=== PATIENT | male | born 1965 | race Caucasian/White ===

== ENCOUNTER → 2021-04-30 10:13 | Outpatient (CLI) | payer BC, SELFPAY ==
--- NOTE | 2021-04-30 11:30 | DI.CT.S_ITS ---
PROCEDURE: CT ABDOMEN PELVIS W CON INDICATIONS: Left lower quadrant pain TECHNIQUE: After the administration of oral and intravenous contrast, axial sections were acquired from the lung bases to the pubic symphysis. Coronal and sagittal reformats were performed. For radiation dose reduction, the following was used: automated exposure control, adjustment of mA and/or kV according to patient size. COMPARISON:None. FINDINGS: Image quality: Excellent. Lung bases: Unremarkable. Heart: No significant findings. ABDOMEN: Liver: Unremarkable. Gallbladder: Unremarkable. Biliary ducts: Unremarkable. Pancreas: Unremarkable. Spleen: Unremarkable. Adrenal Glands: Unremarkable. Kidneys and Ureters: No hydronephrosis. Moderate dilatation of the distal left ureter. Stomach and Bowel: Stomach, small bowel loops, and colon are unremarkable. Normal appendix. Peritoneum: No abnormal intraperitoneal fluid. No free air. Ventral Wall: No hernia. Abdominal Nodes: No retroperitoneal or mesenteric adenopathy by size criteria. Vessels: Aorta and inferior vena cava are normal in size. PELVIS: Pelvic Organs: Unremarkable. Bladder: Unremarkable. Pelvic Nodes: No enlarged lymph nodes. Miscellaneous: No inguinal hernias are seen. Bones: Multilevel disc space narrowing and endplate osteophyte formation, worst at L4-L5, indicating degenerative disc disease. IMPRESSION: 1. No acute process. 2. Distal left ureteral dilatation. Findings may indicate underlying stricture or neoplasm. Ureteroscopy is recommended for further assessment. Dictated by: Jane Parnell M.D. on 04/30/2021 at 14:13 Approved by: Jane Parnell M.D. on 04/30/2021 at 14:14
== END ==
PROVIDERS: PCP Family Medicine; Referring Provider Family Medicine; Visit Provider Family Medicine
DX: R10.32 Left lower quadrant pain (principal)
CPT/HCPCS: 74177

== ENCOUNTER → 2021-05-18 14:30 | Outpatient (CLI) | payer BC, SELFPAY ==
[2021-05-18 16:14] LABS: Prostate Specific Antigen 1.68 ng/mL (0.10-4.00)
== END ==
PROVIDERS: PCP Family Medicine; Referring Provider Specialist; Visit Provider Specialist
DX: R97.20 Elevated prostate specific antigen [PSA] (principal); R33.9 Retention of urine, unspecified; N40.3 Nodular prostate with lower urinary tract symptoms; N13.4 Hydroureter
CPT/HCPCS: 36415; 51701; 81002; 84153

== ENCOUNTER → 2021-06-30 09:03 | Outpatient (CLI) | payer OTHER, SELFPAY ==
[2021-06-30 09:31] LABS: COVID19 -Nasal RAPID Negative (Negative)
== END ==
PROVIDERS: PCP Family Medicine; Visit Provider Specialist
DX: Z20.822 Contact with and (suspected) exposure to COVID-19 (principal)
CPT/HCPCS: 87635; C9803

== ENCOUNTER 2021-07-02 08:03 | Day surgery (SDC) | payer OTHER, SELFPAY ==
[2021-06-29 14:35] VITALS: BMI 28.5
[2021-07-02 08:34] VITALS: BP 157/93; PULSE 91; RESP 20; TEMP 36.6; O2SAT 99; BMI 28.5
[2021-07-02] MEDS: LACTATED RINGERS 1,000 ML 42 ML IV (08:40)
--- NOTE | 2021-07-02 09:51 | PM.PREOP ---
Pre-operative Note COVID-19 Criteria for continued procedure: Expected advancement of disease process, Increased loss of function, Continuing or worsening of significant or severe pain, Deterioration of the patient's condition or overall health, Delay expected to result in less-positive ultimate med/surg outcome and Non-surgical alternatives not available or appropriate per current SOC Interval Note History & Physical reviewed/Exam performed by Physician: Yes Changes to H&P: No
[2021-07-02] MEDS: CEFAZOLIN 2 GM/20 ML SYRINGE IV (10:10)
--- NOTE | 2021-07-02 10:30 | SUR.OPER ---
Lithotomy on padded OR bed, head on pillow, arms secured on padded arm boards at <90 degrees abduction. Legs secured in padded yellow fins stirrups. Patients cell phone placed in patients belongings bag in pre-op area.
[2021-07-02] MEDS: IOPAMIDOL 50 ML VIAL INJ (10:34)
[2021-07-02] MEDS: BELLADONNA/OPIUM SUPPOSITORIES 1 EACH PR (10:46)
[2021-07-02 10:58] VITALS: BP 141/82; PULSE 69; RESP 16; TEMP 36.3; O2SAT 97
--- NOTE | 2021-07-02 11:00 | PM.OP.1 ---
Operative Date/Time/Diagnoses Date of procedure: 07/02/21 Time of procedure: 11:00 Pre-op diagnosis: 1. Left hydroureter 2. Left lower quadrant pain Post-op diagnosis: same Procedure & Clinicians Procedure: 1. Cystoscopy/left retrograde pyelogram Same procedure as scheduled: Yes Indications: 1. Left hydroureter. 2. Left lower quadrant pain. Surgeon: Hermes Curry Click Yes if Unassisted: Yes Anesthesia Type: General Operative Notes Findings: 1. Urethra-normal caliber without annular stricture or lesion. 2. External sphincter-coapted with normal overlying urothelium. 3. Opcadydo-2-6.5 cm length with mild lateral lobe hyperplasia. 4. Left ureter-intraoperative imaging and cine obtained and request made to enter into imaging library. Hydroureter, similar to CT scan findings from April 2021 were seen. There is a compact left intrarenal collecting system and a normal caliber distal 5 cm of left ureter. The intervening ureter between the ureteropelvic junction and the distal portion was variably dilated but most significant the distal portion of the mid ureter and the proximal portion of the distal left ureter. No filling defects were seen. Retrograde study was performed x3. In each instance the collecting system completely drained and prompt fashion. Ureteral orifices were normal position and configuration bilaterally. The bladder trace trabeculation without filling defect, diverticulum, or stone. Closure Type: not applicable Specimen(s): none sent Procedure in detail: Patient was positioned supine was administered general anesthesia. He was then repositioned semi lithotomy and lower abdomen, genitalia, and groin were then prepped and draped in sterile fashion. The 22 [place] panendoscope was then passed lower urinary tract with findings as described above. The 10 [place] cone-tipped ureteral catheter was then positioned at the left ureteral orifice and retrograde pyelography was performed with the findings as described above. Retrograde pyelography followed by did delayed imaging to assure prompt drainage of the system and no evidence of filling defect was performed 3 times. Satisfied that there or no findings of pathology, ureteroscopy was not performed. The bladder is then drained completely common ulcer days was removed. The patient was then repositioned in supine, was awakened, then was transferred regarding for transportation to PACU. Complications: none Post-operative Condition: stable Disposition: PACU Plan for aftercare: Discharge home.
[2021-07-02 11:02] VITALS: BP 132/83; PULSE 55; RESP 14; TEMP 36.2; O2SAT 98
--- NOTE | 2021-07-02 11:08 | DI.RAD.S_ITS ---
PROCEDURE: XR ABDOMEN 1V INDICATIONS: RETROGRADE LEFT TECHNIQUE: One view of the abdomen acquired. FINDINGS: Fluoroscopic images demonstrate opacification and dilation of the mid/distal left ureter with normal caliber noted distally towards the UVJ as well as mid and proximal portions. No definitive filling defect is identified. IMPRESSION: Retrograde the urogram is noted. Recommend correlation with real-time operative report. Dictated by: Ivonne Mendoza M.D. on 07/02/2021 at 16:55 Approved by: Ivonne Mendoza M.D. on 07/02/2021 at 16:56
[2021-07-02 11:11] VITALS: BP 144/87; PULSE 71; RESP 15; O2SAT 98
[2021-07-02 11:16] VITALS: BP 135/88; PULSE 63; RESP 13; TEMP 36.3; O2SAT 98
[2021-07-02 11:42] VITALS: BP 144/86; PULSE 53; RESP 14; TEMP 36.3; O2SAT 99
--- NOTE | 2021-07-02 11:46 | SUR.PHASEII ---
Patient declined post-op acetaminophen, denies pain. Tolerating PO well
== END 2021-07-02 11:55 | disposition home or self-care (01) ==
PROVIDERS: PCP Family Medicine; Referring Provider Specialist; Visit Provider Specialist
PROC: (CPT 52351; principal; 2021-07-02 09:45)
DX: N13.4 Hydroureter (principal); I10 Essential (primary) hypertension; N40.0 Benign prostatic hyperplasia without lower urinary tract symptoms
CPT/HCPCS: 52351; 74018; 76000; J0690; J1100; J2250; J2405; J2704; J3010

== ENCOUNTER → 2021-09-15 07:04 | Outpatient (CLI) | payer OTHER, SELFPAY ==
[2021-09-15 21:42] LABS: COVID19 - ORCAS (NP or Nasal) Negative (Negative)
== END ==
PROVIDERS: PCP Family Medicine; Visit Provider Physician Assistant Medical
DX: Z01.812 Encounter for preprocedural laboratory examination (principal); Z20.822 Contact with and (suspected) exposure to COVID-19
CPT/HCPCS: U0003

== ENCOUNTER 2021-09-16 07:34 | Day surgery (SDC) | payer OTHER, SELFPAY ==
--- NOTE | 2021-09-16 | PATH_ITS ---
[facility] Accession Number: [id number] . 01 Material submitted: . colon - TRANSVERSE COLON POLYP . 01 Diagnosis: Transverse Colon, Polyp, Biopsy: Tubular adenoma. MRV 09/20/2021 1343 Local . 01 Electronically signed: . Lily Arreguin MD, Pathologist NPI- [id number] . 01 Gross description: . TRANSVERSE COLON POLYP: Received in formalin is 1 fragment(s) of hogan, soft tissue measuring 0.4 x 0.4 x 0.3 cm submitted entirely in 1 cassette(s) /DONG 09/17/2021 0033 Local . 01 Pathologist provided ICD-10: D12.3 . 01 CPT . 864847 Specimen Comment: A courtesy copy of this report has been sent to [phone] Performed at: 01 [facility] [address] [place] [id number] MD Arturo Gaspar MD Phone: [phone]
[2021-09-16] MEDS: LACTATED RINGERS 1,000 ML 84 ML IV (07:48)
[2021-09-16 07:54] VITALS: BP 152/83; PULSE 69; RESP 18; TEMP 36.6; O2SAT 100; BMI 29.8
--- NOTE | 2021-09-16 08:27 | PM.HP.1 ---
History of Present Illness History of Present Illness Date Patient Seen: 09/16/21 Time Patient Seen: 08:27 Chief complaint: SCREENING COLONOSCOPY Narrative: Tanner is a 56-year-old man who is here for a screening colonoscopy. He also has left inguinal hernia that is bothering him. See the office note from July for details. Patient History Medical History Elevated PSA High blood pressure Hydroureter, left Male circumcision Nodular prostate with lower urinary tract symptoms Urinary retention Surgical History H/O vasectomy Family & Social History Family History Family/Other Cancer Social History: household members spouse Tobacco & Substance use: Smoking Status Never smoker alcohol intake current alcohol intake frequency a few times a week Substance Use Type does not use Meds Home Medications and Allergies Home Medications Medication Instructions Recorded Confirmed Type lisinopril 10 mg tablet 10 mg PO DAILY 05/18/21 09/16/21 History tamsulosin 0.4 mg capsule 0.4 mg PO BEDTIME #90 caps 05/18/21 09/16/21 Rx sodium sul 1.479 gram-potas ch See Rx Instructions PO PER PKG DIR 08/09/21 09/16/21 Rx 0.188 gram-magnes sul 0.225 gram #24 tabs tablet (Sutab) Allergies Allergy/AdvReac Type Severity Reaction Status Date / Time No Known Drug Allergies Allergy Verified 09/16/21 07:46 Exam Vital Signs (past 8 hours): - 09/16/21 07:54 Temperature 97.8 F Pulse Rate 69 Respiratory Rate 18 Blood Pressure 152/83 H Pulse Oximetry 100 Oxygen Delivery Method Room Air Oxygen Delivery Method Room Air Const General: healthy appearing Resp Effort & Inspection: normal respiratory effort GI Palpation: soft Assessment & Plan Assessment and plan (1) Colon cancer screening: Status: Acute (2) Left inguinal hernia: Status: Acute Plan We will proceed with a colonoscopy for colon cancer screening. We will then have him come back in for another office visit to schedule the hernia repair. Time Spent With Patient Critical Care time: I spent a total of [] minutes of critical care time on this patient's care today; this time is exclusive of procedural time.
[2021-09-16] MEDS: fentaNYL 250 MCG/5 ML INJ 125 MCG IV (08:38)
[2021-09-16] MEDS: MIDAZOLAM 5 MG/5 ML VIAL IV (08:38)
--- NOTE | 2021-09-16 08:57 | PM.OP.COLON ---
Operative Date/Time/Diagnoses Date of procedure: 09/16/21 Time of procedure: 08:57 Pre-op diagnosis: Colon cancer screening Post-op diagnosis: same Procedure & Clinicians Study performed: Colonoscopy Same procedure as scheduled: Yes Surgeon: Miguel Hernandez Procedure Notes Procedure in detail: Surgeon: Miguel Hernandez MD Procedure: The patient was brought to the endoscopy suite, placed in left lateral decubitus position. The patient was connected to monitoring devices. A time-out was performed. Sedation was administered. Once the patient was adequately sedated, a digital rectal exam was performed and was normal. The scope was then inserted and advanced to the cecum where the appendiceal orifice was identified and photographed. The scope was then slowly withdrawn over greater than 6 minutes. The mucosa was thoroughly inspected. There was 1 polyp in the distal transverse colon about 7 mm removed with cold snare. There were scattered diverticula in the sigmoid colon. The scope was retroflexed in the rectum. No abnormalities were noted. The scope was straightened and removed. The patient was awakened and brought to recovery. Versed: 5 mg Fentanyl: 125 mcg EBL: 5 mL Findings: 7 mm polyp in the transverse colon and scattered diverticula in the sigmoid colon Scope withdrawal time: 10 Sedation minutes: 20 Post-procedure Recommendations: Will call with biopsy results Follow up: weeks Disposition: PACU
[2021-09-16 09:00] VITALS: BP 109/84; PULSE 68; RESP 16; TEMP 36.2; O2SAT 99
[2021-09-16 09:06] VITALS: BP 131/79; PULSE 64; RESP 14; O2SAT 98
[2021-09-16 09:11] VITALS: BP 122/78; PULSE 58; RESP 14; O2SAT 99
[2021-09-16 09:15] VITALS: BP 133/83; PULSE 75; RESP 15; O2SAT 95
== END 2021-09-16 09:16 | disposition home or self-care (01) ==
PROVIDERS: PCP Family Medicine; Referring Provider Surgery; Visit Provider Surgery
PROC: 0DJD8ZZ Inspection of Lower Intestinal Tract, Via Natural or Artificial Opening Endoscopic (ICD-10-PCS; CPT 45378; principal; 2021-09-16 08:30)
DX: Z12.11 Encounter for screening for malignant neoplasm of colon (principal); K57.30 Diverticulosis of large intestine without perforation or abscess without bleeding; D12.3 Benign neoplasm of transverse colon
CPT/HCPCS: 45385; 99152; J2250; J3010

== ENCOUNTER → 2021-10-25 07:00 | Outpatient (CLI) | payer OTHER, SELFPAY ==
[2021-10-25 22:05] LABS: COVID19 - ORCAS (NP or Nasal) Negative (Negative)
== END ==
PROVIDERS: PCP Family Medicine; Visit Provider Family Medicine
DX: Z01.812 Encounter for preprocedural laboratory examination (principal); Z20.822 Contact with and (suspected) exposure to COVID-19
CPT/HCPCS: C9803; U0003

== ENCOUNTER 2021-10-26 11:31 | Day surgery (SDC) | payer OTHER, SELFPAY ==
[2021-10-21 10:48] VITALS: BMI 30.5
[2021-10-26] VITALS (7 sets, daily range): BP systolic 120–150; BP diastolic 69–92; PULSE 63–72; RESP 16–20; TEMP 35.9–36.9; O2SAT 97–100; BMI 30.5
[2021-10-26] MEDS: LACTATED RINGERS 1,000 ML 42 ML IV (12:26)
[2021-10-26] MEDS: ACETAMINOPHEN 325 MG TABLET 975 MG PO (12:47)
--- NOTE | 2021-10-26 13:19 | PM.HP.1 ---
History of Present Illness History of Present Illness Date Patient Seen: 10/26/21 Time Patient Seen: 13:19 Chief complaint: Open Lt IHR w/Mesh Narrative: Tanner is here for his left inguinal hernia repair. See the office note from July for details. Patient History Medical History (Updated 07/26/21 @ 12:23 by Miguel Hernandez MD) Elevated PSA High blood pressure Hydroureter, left Male circumcision Nodular prostate with lower urinary tract symptoms Urinary retention Surgical History (Updated 10/21/21 @ 10:54 by Ivy Rodríguez RN) H/O vasectomy Hx of colonoscopy (09/16/21) Hx of cystoscopy (07/02/21) Hx of eye surgery (1998) Family & Social History Family History Family/Other Cancer Social History: household members spouse Tobacco & Substance use: Smoking Status Never smoker alcohol intake current alcohol intake frequency a few times a week Substance Use Type does not use Meds Home Medications and Allergies Home Medications Medication Instructions Recorded Confirmed Type lisinopril 10 mg tablet 10 mg PO DAILY 05/18/21 10/26/21 History tamsulosin 0.4 mg capsule 0.4 mg PO BEDTIME #90 caps 05/18/21 10/26/21 Rx Allergies Allergy/AdvReac Type Severity Reaction Status Date / Time No Known Drug Allergies Allergy Verified 09/16/21 07:46 Exam Vital Signs (past 8 hours): - 10/26/21 12:10 Temperature 96.7 F L Pulse Rate 72 Respiratory Rate 20 Blood Pressure 150/92 H Pulse Oximetry 99 Oxygen Delivery Method Room Air Oxygen Delivery Method Room Air Narrative Exam Narrative: No acute distress Small left inguinal hernia Assessment & Plan Assessment and plan (1) Left inguinal hernia: Status: Acute Plan We will plan to proceed with an open left inguinal hernia repair with mesh. We reviewed the risks and benefits and he like to proceed. Time Spent With Patient Critical Care time: I spent a total of [] minutes of critical care time on this patient's care today; this time is exclusive of procedural time.
[2021-10-26] MEDS: CEFAZOLIN 2 GM/100 ML PREMIX 100 ML IV (13:41)
[2021-10-26] MEDS: BUPIVACAINE 0.5% W/ EPI (PF) 30 ML VIAL INJ (13:55)
--- NOTE | 2021-10-26 13:58 | SUR.OPER ---
Supine on padded OR bed, head on pillow, arms secured on padded arm boards at <90 degrees abduction, legs uncrossed, safety belt at thigh, tape over blanket over lower legs.
--- NOTE | 2021-10-26 15:08 | PM.OP.1 ---
Operative Date/Time/Diagnoses Date of procedure: 10/26/21 Time of procedure: 15:08 Pre-op diagnosis: Left inguinal hernia Post-op diagnosis: same Procedure & Clinicians Procedure: Open left inguinal hernia repair with mesh Same procedure as scheduled: Yes Surgeon: Miguel Hernandez Anesthesia Type: General Operative Notes Procedure in detail: Preoperative antibiotic was administered. The patient was brought to the operating room and placed on the table in supine position general anesthesia was induced. The left groin was prepped and draped in the normal fashion and a time-out was performed. Roughly 10 mL of local anesthetic were injected into the skin and subcutaneous adipose tissue over the left groin. A 6 cm incision was made over the left inguinal canal. Dissection was carried down through the subcutaneous adipose tissue. A bridging vein was cauterized. We exposed the external oblique aponeurosis in the direction of the fibers. Additional local was injected deep to the aponeurosis. A 15 blade scalpel was used to mark the external oblique aponeurosis. Metzenbaum scissors were used to carefully open the aponeurosis in the direction of the fibers taking care not to injure the underlying ilioinguinal nerve. We completely exposed the inguinal canal. The cord was dissected free from the inguinal ligament and floor of the inguinal canal and the external oblique aponeurosis was dissected off of the internal oblique taking care not to injure the hypogastric nerve. We encircled the cord with a Richard drain for retraction. There was a an indirect hernia containing fatty tissue. We dissected the vas deferens away from the fatty hernia contents. There was no direct defect. With some Trendelenburg and extra anesthetic we were able to reduce the fatty tissue into the abdomen. We placed a polypropylene mesh over the inguinal canal floor. The mesh was secured with multiple interrupted 3-0 Prolene sutures to the pubic tubercle and shelving edge of the inguinal ligament as well as to the conjoint tendon medially. We overlapped the tails to recreate an internal ring and secured the medial tail to the inguinal ligament with additional suture. We injected some more local into the fatty tissue in the inguinal canal and cord. Finally, we removed the Richard drain and closed the external oblique fascia with a running 3-0 Vicryl suture. Skin was closed with interrupted 3-0 Vicryl dermal sutures and a running 4 Monocryl subcuticular stitch. EBL 15 mL The patient was awakened and brought to recovery room. Post-operative Condition: stable Disposition: PACU
[2021-10-26] MEDS: OXYCODONE IR 5 MG TABLET PO (15:38)
== END 2021-10-26 15:50 | disposition home or self-care (01) ==
PROVIDERS: PCP Family Medicine; Referring Provider Surgery; Visit Provider Surgery
PROC: (CPT 49505; principal; 2021-10-26 13:45)
DX: K40.90 Unilateral inguinal hernia, without obstruction or gangrene, not specified as recurrent (principal); I10 Essential (primary) hypertension
CPT/HCPCS: 49505; J0690; J1100; J1885; J2250; J2405; J2704; J3010

== ENCOUNTER → 2022-12-30 07:52 | Outpatient (CLI) | payer OTHER, SELFPAY ==
--- NOTE | 2022-12-30 | DI.CT.S_ITS ---
PROCEDURE: CT ABDOMEN PELVIS W CON INDICATIONS: Left lower quadrant pain TECHNIQUE: After the administration of oral and intravenous contrast, axial sections were acquired from the lung bases to the pubic symphysis. Coronal and sagittal reformats were performed. For radiation dose reduction, the following was used: automated exposure control, adjustment of mA and/or kV according to patient size. COMPARISON:[facility], CT, CT ABDOMEN PELVIS W CON, 04/30/2021, 11:40. FINDINGS: Image quality: Excellent. Lung bases: Unremarkable. Heart: No significant findings. ABDOMEN: Liver: No solid mass. Gallbladder: No radiopaque gallstones or wall thickening. Biliary ducts: No biliary dilation. Pancreas: No ductal dilation. Spleen: Size is within normal limits. Adrenal Glands: No adrenal nodules. Kidneys and Ureters: No hydronephrosis. No solid mass. No complex renal cystic lesion which requires follow up. Stomach and Bowel: Normal colonic caliber, without significant wall thickening. Normal-appearing appendix. Peritoneum: No abnormal intraperitoneal fluid. No free air. Ventral Wall: No hernia. Abdominal Nodes: No retroperitoneal or mesenteric adenopathy by size criteria. Vessels: Aorta and inferior vena cava are normal in size. PELVIS: Pelvic Organs: Unremarkable. Bladder: Unremarkable. Pelvic Nodes: No enlarged lymph nodes. Miscellaneous: No inguinal hernias are seen. Bones: No acute or suspicious osseous abnormality. IMPRESSION: No acute process in the abdomen or pelvis to explain patient's symptoms. Dictated by: Jessica Johnson M.D. on 12/30/2022 at 13:36 Approved by: Jessica Johnson M.D. on 12/30/2022 at 13:45
== END ==
PROVIDERS: PCP Family Medicine; Referring Provider Family Medicine; Visit Provider Family Medicine
DX: R10.32 Left lower quadrant pain (principal)
CPT/HCPCS: 74177; Q9967

== ENCOUNTER → 2024-11-18 09:15 | Outpatient (CLI) | payer OTHER, SELFPAY ==
--- NOTE | 2024-11-18 09:41 | DI.MRI.S_ITS ---
PROCEDURE: MR LUMBAR SPINE WO CON INDICATIONS: PAIN TECHNIQUE: Noncontrast sagittal T1 spin echo and T2 fast echo, sagittal STIR, and T2 fast spin echo through the lumbar spine. In cases with scoliosis, additional coronal T2 fast spin echo may be performed. COMPARISON: None. FINDINGS: Image quality: Excellent. Alignment and Curvature: Minimal levocurvature. Straightening of the normal lumbar lordosis. Bone Marrow: Degenerative endplate changes. Marrow is of normal overall signal. No acute vertebral body compression fractures. Spinal Cord: Conus medullaris terminates at the L1 level. Visualized cord demonstrates normal signal and size. Paraspinous Soft Tissues: No paravertebral masses. T12-L1: Mild facet arthropathy. No central canal or neural foraminal stenosis. L1-L2: Facet arthropathy. No significant central canal stenosis. No neural foraminal stenosis. L2-L3: Disc desiccation and moderate height loss. Diffuse disc bulge with right subarticular disc protrusion. Facet hypertrophy. Mild to moderate central canal stenosis. Mild bilateral neural foraminal stenosis. L3-L4: Disc desiccation and diffuse disc bulge. Superimposed left subarticular disc extrusion. Facet hypertrophy. Epidural lipomatosis. Severe central canal stenosis. Severe left neural foraminal stenosis. Moderate right neural foraminal stenosis. L4-L5: Disc desiccation and moderate height loss. Diffuse disc bulge with superimposed right paracentral disc protrusion. Facet arthropathy. Epidural lipomatosis. Mild to moderate central canal stenosis. Severe left and moderate right neural foraminal stenosis. L5-S1: Termination of the thecal sac. Facet arthropathy. Mild bilateral neural foraminal stenosis. IMPRESSION: 1. Multilevel degenerative changes of the lumbar spine as described above. 2. Severe central canal stenosis at L3-L4. 3. Severe neural foraminal stenosis on the left at L3-L4 and L4-5. Dictated by: Juan Woods M.D. on 11/18/2024 at 15:42 Approved by: Juan Woods M.D. on 11/18/2024 at 15:51
== END ==
PROVIDERS: PCP Family Medicine; Referring Provider Family Medicine; Visit Provider Family Medicine
DX: M48.061 Spinal stenosis, lumbar region without neurogenic claudication (principal); M48.07 Spinal stenosis, lumbosacral region; M47.26 Other spondylosis with radiculopathy, lumbar region; M47.27 Other spondylosis with radiculopathy, lumbosacral region
CPT/HCPCS: 72148